=== PATIENT | male | born 1965 | race Caucasian/White ===

== ENCOUNTER 2022-06-21 23:34 | Emergency (ER) | payer MEDICAID, OTHER ==
[~2022-06-21] VITALS: Ht 170.2 cm; Wt 106.4 kg
[2022-06-22] MEDS ORDERED: SODIUM CHLORIDE 0.9% 1,000 ML IV ONE ×2
[2022-06-22] MEDS ORDERED: ONDANSETRON HCL 4 MG/2 ML VIAL IV ONE
[2022-06-22] MEDS ORDERED: MORPHINE SULFATE 4 MG/ML SYR/VIAL IV ONE
[2022-06-22 00:40] LABS: Basophils # (auto) 0.1 10 ^3/uL (0-0.2); Basophils % (auto) 1.1 % (0.0-2.0); Eosinophils # (auto) 0.2 10 ^3/uL (0-0.8); Eosinophils % (auto) 2.2 % (0.0-7.0); Hematocrit 36.7 % (41.0-53.0); Lymphocytes # (auto) 2.6 10 ^3/uL (0.4-5.4); Lymphocytes % (auto) 24.3 % (10.0-50.0); Mean Corpuscular Hemoglobin 27.8 pg (28.0-32.0); Mean Corpuscular Hgb Conc. 32.7 g/dL (32.0-36.0); Mean Corpuscular Volume 84.9 fL (80.0-100.0); Monocytes # (auto) 0.9 10 ^3/uL (0-1.3); Monocytes % (auto) 8.1 % (0.0-12.0); Neutrophils # (auto) 6.8 10 ^3/uL (1.6-8.6); Neutrophils % (auto) 64.3 % (37.0-80.0); Red Blood Cells 4.32 10^6/uL (4.5-5.90); Red Cell Distribution Width 16.1 % (11.8-14.3); White Blood Cell 10.5 10^3/uL (4.4-10.8)
[2022-06-22 00:54] LABS: INR 1.13 (0.9-1.15); Partial Thromboplastin Time 24.2 sec (24.6-33.4)
[2022-06-22 01:00] LABS: Lactic Acid w/Reflex 2.3 mmol/L (0.4-2.0)
[2022-06-22 01:02] LABS: Albumin 2.9 g/dL (3.4-5.0); BUN/Creatinine Ratio 18.1; Calcium 8.4 mg/dL (8.5-10.1); Potassium 3.5 mmol/L (3.5-5.1)
[2022-06-22 01:04] LABS: Bilirubin, Total 0.8 mg/dL (0.2-1.0); Total Protein 6.5 g/dL (6.4-8.2)
[2022-06-22] MEDS ORDERED: LABETALOL HCL 5 MG/ML 4ML SYRINGE IV ONE (05:30)
[2022-06-22 06:59] VITALS: BP 119/85
== END 2022-06-22 07:09 | disposition short-term general hospital (02) ==
LOC: ER 23:34
DX: K40.90 Unilateral inguinal hernia, without obstruction or gangrene, not specified as recurrent (principal)
CPT/HCPCS: 36415; 71045; 74176; 80053; 83605; 84484; 85025; 85610; 85730; 87040; 87077; 87186; 93005; 96361; 96374; 96375; 99285; J2270; J2405; J3490; J7030

== ENCOUNTER 2022-12-13 23:14 | Inpatient (IN) | payer MEDICAID ==
[~2022-12-13] VITALS: Ht 162.6 cm; Wt 78.6 kg
[2022-12-13] MEDS ORDERED: FUROSEMIDE 20 MG/2 ML VIAL IV ONE (23:30)
[2022-12-13] MEDS ORDERED: methylPREDNISolone SOD SUCC 125 MG/2 ML VL IV ONE (23:30)
[2022-12-14 00:02] LABS: Basophils # (auto) 0.3 10 ^3/uL (0-0.2); Eosinophils # (auto) 0.1 10 ^3/uL (0-0.8); Eosinophils % (auto) 0.7 % (0.0-7.0); Hematocrit 40.3 % (41.0-53.0); Hemoglobin 13.2 g/dL (13.5-17.5); Lymphocytes # (auto) 1.5 10 ^3/uL (0.4-5.4); Lymphocytes % (auto) 15.4 % (10.0-50.0); Mean Corpuscular Hemoglobin 27.5 pg (28.0-32.0); Mean Corpuscular Hgb Conc. 32.8 g/dL (32.0-36.0); Mean Corpuscular Volume 83.9 fL (80.0-100.0); Monocytes # (auto) 0.7 10 ^3/uL (0-1.3); Monocytes % (auto) 7.2 % (0.0-12.0); Neutrophils # (auto) 7.2 10 ^3/uL (1.6-8.6); Neutrophils % (auto) 73.7 % (37.0-80.0); Nucleated Red Blood Cells % 0.3 %; Red Cell Distribution Width 17.4 % (11.8-14.3); White Blood Cell 9.8 10^3/uL (4.4-10.8)
[2022-12-14 00:07] LABS: Albumin 3.2 g/dL (3.4-5.0); BUN/Creatinine Ratio 26.7; Calcium 8.6 mg/dL (8.5-10.1)
[2022-12-14 00:09] LABS: Bilirubin, Total 0.6 mg/dL (0.2-1.0); Total Protein 7.3 g/dL (6.4-8.2)
[2022-12-14] MEDS ORDERED: cefTRIAXone 1GM/50ML D5W 50 ML IV ONE (01:30)
[2022-12-14] MEDS ORDERED: AZITHROMYCIN 250 MG TAB PO ONE (01:30)
[2022-12-14] MEDS ORDERED: HYDROcodone-ACET 5/325MG TAB PO ONE ×2 (03:15→22:45)
[2022-12-14] MEDS ORDERED: NITROGLYCERIN 0.4 MG SL TAB SL PRN (05:00)
[2022-12-14] MEDS ORDERED: MORPHINE SULFATE INJ 2 MG/ml SYRG IV PRN (05:00)
[2022-12-14] MEDS ORDERED: ACETAMINOPHEN 325 MG TAB PO PRN (05:00)
[2022-12-14] MEDS ORDERED: ONDANSETRON HCL 4 MG/2 ML VIAL IV PRN (05:00)
[2022-12-14] MEDS ORDERED: ALBUTEROL SULF 2.5 MG/0.5ML(0.5%) NEB SOLN NEB PRN (05:00)
[2022-12-14] MEDS: FUROSEMIDE 20 MG/2 ML VIAL IV SCH ×2 (06:26→18:00)
[2022-12-14 10:20] LABS: INR 1.44 (0.9-1.15)
[2022-12-14] MEDS: AZITHROMYCIN 500MG/ 250ML 250 ML IV SCH (12:12)
[2022-12-14] MEDS: CARVEDILOL 3.125 MG TAB PO SCH ×2 (12:13→22:29)
[2022-12-14] MEDS: ASPirin 81 mg TAB PO SCH (12:13)
[2022-12-14] MEDS: PANTOPRAZOLE 40 MG TAB PO SCH (12:14)
[2022-12-14] MEDS: ENOXAPARIN SOD 40 MG/0.4 ML SYRINGE SC SCH (12:14)
[2022-12-14] MEDS: LISINOPRIL 10 MG TAB PO SCH (12:14)
[2022-12-14 12:35] LABS: Urine WBC None Seen /hpf (0 - 3)
[2022-12-14 13:01] LABS: Urine Bacteria FEW /hpf (None Seen); Urine Blood Negative /uL (Negative)
[2022-12-14 13:14] LABS: Alcohol, Urine < 3.0 mg/dL (0-10); Amphetamine Screen, Urine POSITIVE (NEGATIVE); Barbiturate Scree,Urine NEGATIVE (NEGATIVE); Benzodiazephine Screen, Urine NEGATIVE (NEGATIVE); Cannabinoid Screen, Urine NEGATIVE (NEGATIVE); Cocaine Screen, Urine NEGATIVE (NEGATIVE); Opiate Scree,Urine NEGATIVE (NEGATIVE); Phencyclidine Screen, Urine NEGATIVE (NEGATIVE)
[2022-12-14] MEDS ORDERED: ALBUTEROL MEDNEB 2.5 mg/3ml NEB ONE (18:11)
[2022-12-14] MEDS: IPRATROPIUM BROM 0.5 MG/2.5ML INH SOL NEB SCH (19:02)
[2022-12-14] MEDS: BUDESONIDE (INHALATION) 0.5 MG/2 ML NEB NEB SCH (19:02)
[2022-12-14] MEDS: ALBUTEROL SULF 2.5 MG/0.5ML(0.5%) NEB SOLN NEB SCH (19:03)
[2022-12-14] MEDS: LORazepam 0.5 MG TAB PO SCH (22:29)
[2022-12-14] MEDS: methylPREDNISolone SOD SUCC 40 MG/ML VL IV SCH (22:29)
[2022-12-14] MEDS: ATORVASTATIN 20 MG TAB PO SCH (22:30)
[2022-12-14 23:53] VITALS: BP 98/66
[2022-12-15] VITALS: BP 98/66
[2022-12-15 05:00] VITALS: BP 87/52
[2022-12-15 05:58] LABS: Basophils # (auto) 0 10 ^3/uL (0-0.2); Basophils % (auto) 0.1 % (0.0-2.0); Eosinophils # (auto) 0 10 ^3/uL (0-0.8); Hematocrit 36.3 % (41.0-53.0); Lymphocytes # (auto) 0.7 10 ^3/uL (0.4-5.4); Lymphocytes % (auto) 5.9 % (10.0-50.0); Mean Corpuscular Hemoglobin 27.6 pg (28.0-32.0); Mean Corpuscular Hgb Conc. 33.1 g/dL (32.0-36.0); Mean Corpuscular Volume 83.2 fL (80.0-100.0); Monocytes # (auto) 0.4 10 ^3/uL (0-1.3); Monocytes % (auto) 3.2 % (0.0-12.0); Neutrophils # (auto) 10.9 10 ^3/uL (1.6-8.6); Neutrophils % (auto) 90.8 % (37.0-80.0); Nucleated Red Blood Cells % 0.2 %; Red Blood Cells 4.37 10^6/uL (4.5-5.90); Red Cell Distribution Width 17.3 % (11.8-14.3); White Blood Cell 11.9 10^3/uL (4.4-10.8)
[2022-12-15] MEDS: FUROSEMIDE 20 MG/2 ML VIAL IV SCH ×2 (06:00→18:00)
[2022-12-15] MEDS ORDERED: ALBUTEROL MEDNEB 2.5 mg/3ml NEB ONE ×3 (06:04→19:45)
[2022-12-15] MEDS: ALBUTEROL SULF 2.5 MG/0.5ML(0.5%) NEB SOLN NEB SCH ×3 (06:27→19:45)
[2022-12-15] MEDS: BUDESONIDE (INHALATION) 0.5 MG/2 ML NEB NEB SCH ×2 (06:27→19:46)
[2022-12-15] MEDS: IPRATROPIUM BROM 0.5 MG/2.5ML INH SOL NEB SCH ×3 (06:27→19:45)
[2022-12-15] MEDS: methylPREDNISolone SOD SUCC 40 MG/ML VL IV SCH ×3 (06:32→21:45)
[2022-12-15 07:57] LABS: Albumin 3.1 g/dL (3.4-5.0); Calcium 8.5 mg/dL (8.5-10.1); Potassium 4.5 mmol/L (3.5-5.1)
[2022-12-15 08:01] LABS: BUN/Creatinine Ratio 32.7; Bilirubin, Total 0.4 mg/dL (0.2-1.0); Total Protein 7.1 g/dL (6.4-8.2)
[2022-12-15 09:00] VITALS: BP 124/85
[2022-12-15] MEDS: AZITHROMYCIN 500MG/ 250ML 250 ML IV SCH (09:35)
[2022-12-15] MEDS: ASPirin 81 mg TAB PO SCH (09:35)
[2022-12-15] MEDS: PANTOPRAZOLE 40 MG TAB PO SCH (09:39)
[2022-12-15] MEDS: CARVEDILOL 3.125 MG TAB PO SCH ×2 (09:43→21:46)
[2022-12-15] MEDS: LORazepam 0.5 MG TAB PO SCH ×2 (09:45→21:45)
[2022-12-15] MEDS: LISINOPRIL 10 MG TAB PO SCH (09:46)
[2022-12-15] MEDS: ENOXAPARIN SOD 40 MG/0.4 ML SYRINGE SC SCH (09:48)
[2022-12-15] MEDS: NICOTINE 14 MG/24HR TOPICAL PATCH TD SCH (09:59)
[2022-12-15] MEDS ORDERED: fentaNYL CITRATE 100 MCG/2 ML VL ONE (12:49)
[2022-12-15] MEDS ORDERED: VERAPAMIL 2.5MG/ML INJ 2ML VIAL IV ONE (12:49)
[2022-12-15] MEDS ORDERED: IODIXANOL 320MG/ML 100ML BTL IV ONE (12:49)
[2022-12-15] MEDS ORDERED: ANGIOMAX 250 MG VIAL IV ONE (12:49)
[2022-12-15] MEDS ORDERED: HEPARIN SODIUM (PORCINE) 5000 UNITS/ML 1ML VIAL ONE (12:49)
[2022-12-15] MEDS ORDERED: SODIUM CHL 0.9% 0 ML ONE (12:49)
[2022-12-15] MEDS ORDERED: LIDOCAINE 2%HCL (LOCAL ANESTH.) INJ 10ml MDV ONE (12:50)
[2022-12-15 13:00] VITALS: BP 112/80
[2022-12-15] MEDS ORDERED: MIDAZOLAM HCL 2MG/2ML 2ml VIAL (1mg/ml) ONE (13:00)
[2022-12-15] MEDS ORDERED: FUROSEMIDE 20 MG/2 ML VIAL ONE (13:12)
[2022-12-15] MEDS ORDERED: EPINEPHrine HCL 1 MG/10 ML SYRG IV ONE (16:08)
[2022-12-15 17:00] VITALS: BP 102/68
[2022-12-15] MEDS: ATORVASTATIN 20 MG TAB PO SCH (21:46)
[2022-12-16 05:00] VITALS: BP 108/67
[2022-12-16] MEDS: FUROSEMIDE 20 MG/2 ML VIAL IV SCH ×2 (05:51→12:49)
[2022-12-16] MEDS: methylPREDNISolone SOD SUCC 40 MG/ML VL IV SCH ×2 (05:53→12:49)
[2022-12-16] MEDS ORDERED: ALBUTEROL MEDNEB 2.5 mg/3ml NEB ONE ×2 (06:06→14:00)
[2022-12-16] MEDS: ALBUTEROL SULF 2.5 MG/0.5ML(0.5%) NEB SOLN NEB SCH ×2 (06:26→15:57)
[2022-12-16] MEDS: IPRATROPIUM BROM 0.5 MG/2.5ML INH SOL NEB SCH ×2 (06:26→15:57)
[2022-12-16] MEDS ORDERED: CAR3125T PO ×3 (08:38→08:40)
[2022-12-16] MEDS ORDERED: IPRA0.00 IN ×3 (08:38→08:40)
[2022-12-16] MEDS ORDERED: FAMO-161 PO ×3 (08:38→08:40)
[2022-12-16] MEDS ORDERED: FURO1TAB31 PO ×3 (08:38→08:40)
[2022-12-16] MEDS ORDERED: SACU1TAB PO ×3 (08:38→08:40)
[2022-12-16] MEDS ORDERED: ATOR20TA50 PO ×3 (08:38→08:40)
[2022-12-16] MEDS ORDERED: ASPI-325 PO ×2 (08:38→08:39)
[2022-12-16 08:50] VITALS: BP 125/99
[2022-12-16] MEDS: AZITHROMYCIN 500MG/ 250ML 250 ML IV SCH (10:46)
[2022-12-16] MEDS: ASPirin 81 mg TAB PO SCH (10:46)
[2022-12-16] MEDS: LORazepam 0.5 MG TAB PO SCH (10:47)
[2022-12-16] MEDS: PANTOPRAZOLE 40 MG TAB PO SCH (10:48)
[2022-12-16] MEDS: NICOTINE 14 MG/24HR TOPICAL PATCH TD SCH (10:50)
[2022-12-16] MEDS: CARVEDILOL 3.125 MG TAB PO SCH (10:55)
[2022-12-16] MEDS: LISINOPRIL 10 MG TAB PO SCH (10:56)
[2022-12-16] MEDS: ENOXAPARIN SOD 40 MG/0.4 ML SYRINGE SC SCH (12:50)
[2022-12-16 14:43] VITALS: BP 125/99
[2022-12-16] MEDS: BUDESONIDE (INHALATION) 0.5 MG/2 ML NEB NEB SCH (15:57)
== END 2022-12-16 16:49 | disposition home health service (06) | DRG 190 ==
LOC: ER 23:14 → EDBD 23:14 → TELE 12-14 04:55 → TELE-EAST 12-14 23:42
PROVIDERS: ADMIT Nurse Practitioner; ATTEND Hospitalist
PROC: 4A023N7 Measurement of Cardiac Sampling and Pressure, Left Heart, Percutaneous Approach (ICD-10-PCS; principal; 2022-12-15)
PROC: B211YZZ Fluoroscopy of Multiple Coronary Arteries using Other Contrast (ICD-10-PCS; 2022-12-15)
DX: I21.4 Non-ST elevation (NSTEMI) myocardial infarction (principal); I42.8 Other cardiomyopathies; N17.9 Acute kidney failure, unspecified; I11.0 Hypertensive heart disease with heart failure; I50.9 Heart failure, unspecified; J44.1 Chronic obstructive pulmonary disease with (acute) exacerbation; R09.02 Hypoxemia; I25.10 Atherosclerotic heart disease of native coronary artery without angina pectoris; F17.210 Nicotine dependence, cigarettes, uncomplicated; Z20.822 Contact with and (suspected) exposure to COVID-19; Z59.00 Homelessness unspecified; Z98.61 Coronary angioplasty status; Z86.73 Personal history of transient ischemic attack (TIA), and cerebral infarction without residual deficits
CPT/HCPCS: 36415; 80053; 80307; 81001; 83880; 84484; 85025; 85610; 87426; 93005; 93306; 94640; 96365; 96375; 99291; G0378; J0696; J2001; J2250; J2405; Q9967

== ENCOUNTER 2022-12-29 00:33 | Emergency (ER) | payer MEDICAID ==
[~2022-12-29 00:33] MED LIST: ASPI-325 PO; ATOR20TA50 PO; CAR3125T PO; FAMO-161 PO; FURO1TAB31 PO; IPRA0.00 IN; SACU1TAB PO
[2022-12-29 00:56] LABS: Basophils # (auto) 0.1 10 ^3/uL (0-0.2); Eosinophils # (auto) 0.1 10 ^3/uL (0-0.8); Mean Corpuscular Volume 84.7 fL (80.0-100.0); Monocytes # (auto) 0.8 10 ^3/uL (0-1.3)
[2022-12-29 00:58] LABS: Eosinophils % (auto) 1.1 % (0.0-7.0); Hematocrit 43.7 % (41.0-53.0); Hemoglobin 13.8 g/dL (13.5-17.5); Lymphocytes # (auto) 2.6 10 ^3/uL (0.4-5.4); Lymphocytes % (auto) 20.8 % (10.0-50.0); Mean Corpuscular Hemoglobin 26.8 pg (28.0-32.0); Mean Corpuscular Hgb Conc. 31.6 g/dL (32.0-36.0); Monocytes % (auto) 6.1 % (0.0-12.0); Nucleated Red Blood Cells % 0.1 %; Red Blood Cells 5.16 10^6/uL (4.5-5.90); Red Cell Distribution Width 18.9 % (11.8-14.3); White Blood Cell 12.6 10^3/uL (4.4-10.8)
[2022-12-29 01:19] LABS: INR 1.21 (0.9-1.15); Partial Thromboplastin Time 31.4 sec (24.6-33.4)
[2022-12-29 01:24] LABS: Albumin 3.2 g/dL (3.4-5.0); BUN/Creatinine Ratio 27.9; Calcium 8.5 mg/dL (8.5-10.1); Magnesium 1.8 mg/dL (1.6-2.6); Potassium 3.9 mmol/L (3.5-5.1)
[2022-12-29 01:40] LABS: Bilirubin, Total 0.4 mg/dL (0.2-1.0)
[2022-12-29 01:41] LABS: Total Protein 7.4 g/dL (6.4-8.2)
== END 2022-12-29 00:56 | disposition left against medical advice (07) ==
LOC: ER 00:33
DX: R07.89 Other chest pain (principal); R06.02 Shortness of breath; Z53.21 Procedure and treatment not carried out due to patient leaving prior to being seen by health care provider; Z79.899 Other long term (current) drug therapy
CPT/HCPCS: 36415; 80053; 83735; 83880; 84484; 85025; 85610; 85730; 93005

== ENCOUNTER 2023-01-26 18:48 | Inpatient (IN) | payer MEDICAID ==
[~2023-01-26] VITALS: Ht 167.6 cm; Wt 73.9 kg
[2023-01-26 19:40] LABS: Basophils # (auto) 0.1 10 ^3/uL (0-0.2); Eosinophils # (auto) 0.1 10 ^3/uL (0-0.8); Eosinophils % (auto) 0.8 % (0.0-7.0); Hemoglobin 14.3 g/dL (13.5-17.5); Monocytes # (auto) 1.4 10 ^3/uL (0-1.3); White Blood Cell 9.1 10^3/uL (4.4-10.8)
[2023-01-26 19:42] LABS: Basophils % (auto) 0.7 % (0.0-2.0); Hematocrit 45.1 % (41.0-53.0); Lymphocytes # (auto) 1.7 10 ^3/uL (0.4-5.4); Lymphocytes % (auto) 18.2 % (10.0-50.0); Mean Corpuscular Hemoglobin 26.4 pg (28.0-32.0); Mean Corpuscular Hgb Conc. 31.7 g/dL (32.0-36.0); Mean Corpuscular Volume 83.1 fL (80.0-100.0); Neutrophils # (auto) 5.9 10 ^3/uL (1.6-8.6); Neutrophils % (auto) 65.3 % (37.0-80.0); Red Blood Cells 5.43 10^6/uL (4.5-5.90)
[2023-01-26 20:19] LABS: INR 1.06 (0.9-1.15); Partial Thromboplastin Time 32.1 sec (24.6-33.4)
[2023-01-26 20:22] LABS: Albumin 3.2 g/dL (3.4-5.0); BUN/Creatinine Ratio 15.1 (10.0-20.0); Calcium 8.6 mg/dL (8.5-10.1); Magnesium 1.9 mg/dL (1.6-2.6); Potassium 3.9 mmol/L (3.5-5.1)
[2023-01-26 20:24] LABS: Bilirubin, Total 0.5 mg/dL (0.2-1.0); Total Protein 7.3 g/dL (6.4-8.2)
[2023-01-26] MEDS ORDERED: OXYCODONE W/ ACETAMINOPHEN 5/325MG TABLET PO ONE (23:30)
[2023-01-27] MEDS ORDERED: AZITHROMYCIN 250 MG TAB PO ONE (00:30)
[2023-01-27] MEDS ORDERED: cefTRIAXone 1GM/50ML D5W 50 ML IV ONE (00:30)
[2023-01-27] MEDS ORDERED: levoFLOXacin 500MG 100 ML IV ONE (00:45)
[2023-01-27] MEDS ORDERED: ONDANSETRON HCL 4 MG/2 ML VIAL IV PRN (02:45)
[2023-01-27] MEDS ORDERED: HYDROcodone-ACET 5/325MG TAB PO PRN (02:45)
[2023-01-27] MEDS ORDERED: NITROGLYCERIN 0.4 MG SL TAB SL PRN (02:45)
[2023-01-27] MEDS ORDERED: TEMAZEPAM 15 MG CAP PO PRN (02:45)
[2023-01-27] MEDS ORDERED: ACETAMINOPHEN 325 MG TAB PO PRN (02:45)
[2023-01-27] MEDS ORDERED: MORPHINE SULFATE INJ 2 MG/ml SYRG IV PRN (02:45)
[2023-01-27] MEDS ORDERED: ALBUTEROL SULF 2.5 MG/0.5ML(0.5%) NEB SOLN NEB PRN (07:00)
[2023-01-27] MEDS ORDERED: LORazepam 2MG/ML-1ML VIAL IV PRN (09:15)
[2023-01-27 09:16] VITALS: BP 121/72
[2023-01-27] MEDS ORDERED: ASPirin 81 mg TAB PO SCH (10:00)
[2023-01-27] MEDS ORDERED: ENOXAPARIN SOD 40 MG/0.4 ML SYRINGE SC SCH (10:00)
[2023-01-27] MEDS: predniSONE 20 MG TAB PO SCH (11:06)
[2023-01-27] MEDS: FUROSEMIDE 40 MG TAB PO SCH (11:06)
[2023-01-27] MEDS: PANTOPRAZOLE 40 MG TAB PO SCH (11:07)
[2023-01-27] MEDS: CARVEDILOL 3.125 MG TAB PO SCH ×2 (11:07→22:55)
[2023-01-27] MEDS: ENOXAPARIN SOD 60 MG/0.6 ML SYRINGE SC SCH ×2 (11:08→23:14)
[2023-01-27] MEDS: SACUBITRIL-VALSARTAN 24mg/26mg TAB PO SCH ×2 (11:13→22:55)
[2023-01-27 11:16] LABS: Cholesterol 85 mg/dL (< 200); HDL Cholesterol 32 mg/dL (40-59); LDL Cholesterol 47 mg/dL (< 100); Triglycerides 115 mg/dL (< 150)
[2023-01-27 13:30] LABS: Urine Bacteria NONE SEEN /hpf (None Seen); Urine Blood Negative /uL (Negative); Urine Specific Gravity 1.005 (1.001-1.035); Urine WBC <1 /hpf (0 - 3)
[2023-01-27 13:48] LABS: Alcohol, Urine < 3.0 mg/dL (0-10); Amphetamine Screen, Urine POSITIVE (NEGATIVE); Barbiturate Scree,Urine NEGATIVE (NEGATIVE); Benzodiazephine Screen, Urine NEGATIVE (NEGATIVE); Cannabinoid Screen, Urine NEGATIVE (NEGATIVE)
[2023-01-27 13:56] LABS: Cocaine Screen, Urine NEGATIVE (NEGATIVE); Opiate Scree,Urine NEGATIVE (NEGATIVE); Phencyclidine Screen, Urine NEGATIVE (NEGATIVE)
[2023-01-27] MEDS: cefTRIAXone 1GM/50ML D5W 50 ML IV SCH (19:43)
[2023-01-27] MEDS ORDERED: levoFLOXacin 500MG 100 ML IV SCH (22:00)
[2023-01-27] MEDS: ATORVASTATIN 20 MG TAB PO SCH (23:13)
[2023-01-27] MEDS: DOXYCYCLINE 100 MG TAB/CAP PO SCH (23:14)
[2023-01-27 23:21] VITALS: BP 93/60
[2023-01-28] VITALS (7 sets, daily range): BP systolic 97–122; BP diastolic 53–68
[2023-01-28] MEDS ORDERED: APIX5TAB PO (00:02)
[2023-01-28 06:26] LABS: Basophils # (auto) 0 10 ^3/uL (0-0.2); Basophils % (auto) 0.3 % (0.0-2.0); Eosinophils # (auto) 0 10 ^3/uL (0-0.8); Hemoglobin 14.5 g/dL (13.5-17.5); Neutrophils # (auto) 9.6 10 ^3/uL (1.6-8.6)
[2023-01-28 06:29] LABS: Hematocrit 44.4 % (41.0-53.0); Lymphocytes # (auto) 2.1 10 ^3/uL (0.4-5.4); Lymphocytes % (auto) 16.2 % (10.0-50.0); Mean Corpuscular Hgb Conc. 32.7 g/dL (32.0-36.0); Mean Corpuscular Volume 82.6 fL (80.0-100.0); Monocytes % (auto) 8.2 % (0.0-12.0); Neutrophils % (auto) 75.3 % (37.0-80.0); Nucleated Red Blood Cells % 0.1 %; Red Blood Cells 5.37 10^6/uL (4.5-5.90); Red Cell Distribution Width 18.2 % (11.8-14.3); White Blood Cell 12.8 10^3/uL (4.4-10.8)
[2023-01-28 06:33] LABS: Potassium 4.1 mmol/L (3.5-5.1)
[2023-01-28 06:45] LABS: BUN/Creatinine Ratio 21.3 (10.0-20.0)
[2023-01-28 06:46] LABS: Albumin 2.8 g/dL (3.4-5.0); Bilirubin, Total 0.5 mg/dL (0.2-1.0); Calcium 8.9 mg/dL (8.5-10.1)
[2023-01-28] MEDS: PANTOPRAZOLE 40 MG TAB PO SCH (09:30)
[2023-01-28] MEDS: DOXYCYCLINE 100 MG TAB/CAP PO SCH ×2 (09:30→22:10)
[2023-01-28] MEDS: ENOXAPARIN SOD 60 MG/0.6 ML SYRINGE SC SCH ×2 (09:30→22:16)
[2023-01-28] MEDS: FUROSEMIDE 40 MG TAB PO SCH (09:30)
[2023-01-28] MEDS: predniSONE 20 MG TAB PO SCH (09:30)
[2023-01-28] MEDS: SACUBITRIL-VALSARTAN 24mg/26mg TAB PO SCH ×2 (09:31→22:10)
[2023-01-28] MEDS: CARVEDILOL 3.125 MG TAB PO SCH ×2 (09:31→22:09)
[2023-01-28] MEDS: cefTRIAXone 1GM/50ML D5W 50 ML IV SCH (20:00)
[2023-01-28] MEDS: ATORVASTATIN 20 MG TAB PO SCH (22:08)
[2023-01-29 05:00] VITALS: BP 123/76
[2023-01-29 09:00] VITALS: BP 88/51
[2023-01-29] MEDS: SACUBITRIL-VALSARTAN 24mg/26mg TAB PO SCH (10:00)
[2023-01-29] MEDS: CARVEDILOL 3.125 MG TAB PO SCH (10:00)
[2023-01-29] MEDS: predniSONE 20 MG TAB PO SCH (10:27)
[2023-01-29] MEDS: PANTOPRAZOLE 40 MG TAB PO SCH (10:28)
[2023-01-29] MEDS: ENOXAPARIN SOD 60 MG/0.6 ML SYRINGE SC SCH (10:28)
[2023-01-29] MEDS: FUROSEMIDE 40 MG TAB PO SCH (10:28)
[2023-01-29] MEDS: DOXYCYCLINE 100 MG TAB/CAP PO SCH (10:28)
[2023-01-29 13:20] VITALS: BP 103/61
[2023-01-29] MEDS ORDERED: DOX100T PO (13:55)
== END 2023-01-29 14:00 | disposition home or self-care (01) | DRG 139 ==
LOC: EDBD 18:48 → ER 18:48 → TELE 01-27 02:44 → TELE-EAST 01-27 21:54
PROVIDERS: ADMIT Nurse Practitioner; ATTEND Internal Medicine
DX: J18.9 Pneumonia, unspecified organism (principal); I11.0 Hypertensive heart disease with heart failure; G81.94 Hemiplegia, unspecified affecting left nondominant side; I50.9 Heart failure, unspecified; I48.91 Unspecified atrial fibrillation; I10 Essential (primary) hypertension; F17.210 Nicotine dependence, cigarettes, uncomplicated; I25.10 Atherosclerotic heart disease of native coronary artery without angina pectoris; Z59.00 Homelessness unspecified; I25.2 Old myocardial infarction; Z79.899 Other long term (current) drug therapy; Z79.82 Long term (current) use of aspirin; Z86.711 Personal history of pulmonary embolism; Z88.1 Allergy status to other antibiotic agents; Z95.5 Presence of coronary angioplasty implant and graft
CPT/HCPCS: 36415; 70551; 71045; 80053; 80061; 80307; 81001; 83735; 83880; 84484; 85025; 85379; 85610; 85652; 85730; 86038; 86141; 93005; 93886; 96365; 96367; 97163; G0378; J0696; J1956; J2405

== ENCOUNTER 2023-04-23 20:33 | Inpatient (IN) | payer MEDICAID ==
[~2023-04-23] VITALS: Ht 165.1 cm; Wt 49.2 kg
[~2023-04-23 20:33] MED LIST changes: +APIX5TAB PO; +DOX100T PO
[2023-04-23 21:34] LABS: Basophils # (auto) 0.1 10 ^3/uL (0-0.2); Basophils % (auto) 0.7 % (0.0-2.0); Eosinophils # (auto) 0.1 10 ^3/uL (0-0.8); Eosinophils % (auto) 0.5 % (0.0-7.0); Hematocrit 29.2 % (41.0-53.0); Hemoglobin 9.5 g/dL (13.5-17.5); Lymphocytes # (auto) 3.6 10 ^3/uL (0.4-5.4); Lymphocytes % (auto) 28.3 % (10.0-50.0); Mean Corpuscular Hemoglobin 29.5 pg (28.0-32.0); Mean Corpuscular Hgb Conc. 32.7 g/dL (32.0-36.0); Mean Corpuscular Volume 90.2 fL (80.0-100.0); Monocytes # (auto) 1.7 10 ^3/uL (0-1.3); Monocytes % (auto) 13.8 % (0.0-12.0); Neutrophils # (auto) 7.2 10 ^3/uL (1.6-8.6); Neutrophils % (auto) 56.7 % (37.0-80.0); Nucleated Red Blood Cells % 0.1 %; Red Blood Cells 3.24 10^6/uL (4.5-5.90); Red Cell Distribution Width 16.8 % (11.8-14.3); White Blood Cell 12.6 10^3/uL (4.4-10.8)
[2023-04-23 21:55] LABS: Albumin 2.2 g/dL (3.4-5.0); Anion Gap 9 (5-15); Blood Alcohol < 3.0 mg/dL (<10); Blood Urea Nitrogen 16 mg/dL (7-18); Calcium 7.5 mg/dL (8.5-10.1); Carbon Dioxide 21 mmol/L (21-32); Chloride 112 mmol/L (98-107); Glucose 93 mg/dL (74-106); Magnesium 1.7 mg/dL (1.6-2.6); Potassium 3.6 mmol/L (3.5-5.1); Sodium 142 mmol/L (136-145)
[2023-04-23 21:58] LABS: Alanine Aminotransferase 42 U/L (16-61); Alkaline Phosphatase 105 U/L (45-117); Aspartate Aminotransferase 30 U/L (15-37); BUN/Creatinine Ratio 17.8 (10.0-20.0); Bilirubin, Total 0.2 mg/dL (0.2-1.0); GFR African American 112 mL/min; GFR Non-African American 92 mL/min
[2023-04-23 22:00] LABS: Lactic Acid w/Reflex 2.2 mmol/L (0.4-2.0)
[2023-04-23 22:10] VITALS: PULSE 18
[2023-04-23 22:24] LABS: INR 1.1 (0.9-1.15); Partial Thromboplastin Time 21.5 SEC (24.5-34.5)
[2023-04-23] MEDS ORDERED: LACTATED RINGER S IV ONE (22:30)
[2023-04-23] MEDS ORDERED: PIPERACILLIN-TAZOB 3.375GM 100 ML IV ONE (22:30)
[2023-04-23] MEDS ORDERED: VANCOMYCIN 1GM/250ML 250 ML IV ONE (22:30)
[2023-04-23] MEDS ORDERED: IOHEXOL 350 MG/ML 100ML IJ ONE (23:18)
[2023-04-24] MEDS ORDERED: HYDROmorphone HCL 2 MG/ML VL/or syr IV ONE
[2023-04-24] MEDS ORDERED: LACTULOSE 10g/15ml SOLN 473ML PR ONE (03:00)
[2023-04-24] MEDS ORDERED: LACTULOSE 20Gm/30ML SOLN PO ONE (03:15)
[2023-04-24] MEDS ORDERED: ENOXAPARIN SOD 60 MG/0.6 ML SYRINGE SC ONE (03:15)
[2023-04-24] MEDS ORDERED: MORPHINE SULFATE INJ 2 MG/ml SYRG IV PRN (03:30)
[2023-04-24] MEDS ORDERED: ONDANSETRON HCL 4 MG/2 ML VIAL IV PRN (03:30)
[2023-04-24] MEDS ORDERED: ALBUMIN 25% 100 ML IV ONE (03:30)
[2023-04-24] MEDS ORDERED: NITROGLYCERIN 0.4 MG SL TAB SL PRN (03:30)
[2023-04-24] MEDS ORDERED: ACETAMINOPHEN 325 MG TAB PO PRN (03:30)
[2023-04-24 05:09] LABS: Basophils # (auto) 0.1 10 ^3/uL (0-0.2); Eosinophils # (auto) 0 10 ^3/uL (0-0.8); Eosinophils % (auto) 0.3 % (0.0-7.0); Hemoglobin 8.2 g/dL (13.5-17.5); Mean Corpuscular Hemoglobin 29.5 pg (28.0-32.0); Red Blood Cells 2.77 10^6/uL (4.5-5.90); White Blood Cell 13.4 10^3/uL (4.4-10.8)
[2023-04-24 05:13] LABS: Basophils % (auto) 1.1 % (0.0-2.0); Hematocrit 25.1 % (41.0-53.0); Lymphocytes # (auto) 2.4 10 ^3/uL (0.4-5.4); Lymphocytes % (auto) 18.3 % (10.0-50.0); Mean Corpuscular Hgb Conc. 32.6 g/dL (32.0-36.0); Mean Corpuscular Volume 90.4 fL (80.0-100.0); Monocytes # (auto) 1.5 10 ^3/uL (0-1.3); Monocytes % (auto) 11.4 % (0.0-12.0); Neutrophils # (auto) 9.2 10 ^3/uL (1.6-8.6); Neutrophils % (auto) 68.9 % (37.0-80.0); Nucleated Red Blood Cells % 0.2 %
[2023-04-24] MEDS ORDERED: VANCOMYCIN PER PHARMACY 0 MG IV SCH (05:15)
[2023-04-24 05:24] LABS: Potassium 3.4 mmol/L (3.5-5.1)
[2023-04-24 05:31] LABS: Albumin 2.2 g/dL (3.4-5.0); BUN/Creatinine Ratio 26.9 (10.0-20.0); Bilirubin, Total 0.2 mg/dL (0.2-1.0); Calcium 7.6 mg/dL (8.5-10.1); Total Protein 5.5 g/dL (6.4-8.2)
[2023-04-24] MEDS: SODIUM CHLOR 0.9% PF (SALINE LOCK) 10ML VIAL/SYR IV SCH ×3 (06:09→21:41)
[2023-04-24 07:35] VITALS: PULSE 114; RESP 14; O2SAT 92
[2023-04-24 08:23] LABS: Urine Bacteria NONE SEEN /hpf (None Seen); Urine Blood Negative /uL (Negative); Urine Specific Gravity 1.045 (1.001-1.035); Urine WBC <1 /hpf (0 - 3)
[2023-04-24 08:40] LABS: Alcohol, Urine < 3.0 mg/dL (0-10); Amphetamine Screen, Urine NEGATIVE (NEGATIVE); Barbiturate Scree,Urine NEGATIVE (NEGATIVE); Benzodiazephine Screen, Urine NEGATIVE (NEGATIVE); Cannabinoid Screen, Urine NEGATIVE (NEGATIVE); Cocaine Screen, Urine NEGATIVE (NEGATIVE); Opiate Scree,Urine NEGATIVE (NEGATIVE); Phencyclidine Screen, Urine NEGATIVE (NEGATIVE)
[2023-04-24] MEDS: cefTRIAXone 1GM/50ML D5W 50 ML IV SCH (09:38)
[2023-04-24] MEDS: LACTULOSE 20Gm/30ML SOLN PO SCH ×3 (09:38→21:25)
[2023-04-24] MEDS: FUROSEMIDE 40 MG/4 ML VIAL IV SCH (10:00)
[2023-04-24] MEDS: CARVEDILOL 3.125 MG TAB PO SCH ×2 (10:00→21:42)
[2023-04-24] MEDS: FAMOTIDINE (10MG/ML) 2ML VL IV SCH (11:41)
[2023-04-24] MEDS: ASPirin 81 mg TAB PO SCH (11:41)
[2023-04-24] MEDS: POTASSIUM CHL 20MEQ/100ML 100 ML IV SCH ×2 (11:43→13:57)
[2023-04-24] MEDS: VANCOMYCIN 1GM/250ML 250 ML IV SCH ×2 (11:45→23:30)
[2023-04-24] MEDS ORDERED: DOBUTamine 1000MCG/ML 250 ML IV SCH (14:30)
[2023-04-24 20:09] VITALS: PULSE 96; RESP 18; O2SAT 98
[2023-04-24] MEDS: APIXABAN 5 MG TAB PO SCH (21:52)
[2023-04-24] MEDS: ATORVASTATIN 20 MG TAB PO SCH (21:52)
[2023-04-24] MEDS: SACUBITRIL-VALSARTAN 24mg/26mg TAB PO SCH (21:55)
[2023-04-25] MEDS: LACTULOSE 20Gm/30ML SOLN PO SCH ×4 (03:18→21:00)
[2023-04-25] MEDS: SODIUM CHLOR 0.9% PF (SALINE LOCK) 10ML VIAL/SYR IV SCH ×3 (05:44→22:34)
[2023-04-25 08:01] VITALS: PULSE 90; RESP 16; O2SAT 94
[2023-04-25] MEDS: cefTRIAXone 1GM/50ML D5W 50 ML IV SCH (09:41)
[2023-04-25] MEDS ORDERED: ENOXAPARIN SOD 40 MG/0.4 ML SYRINGE SC SCH (10:00)
[2023-04-25] MEDS: ASPirin 81 mg TAB PO SCH (10:38)
[2023-04-25] MEDS: APIXABAN 5 MG TAB PO SCH ×2 (10:38→22:37)
[2023-04-25] MEDS: FAMOTIDINE (10MG/ML) 2ML VL IV SCH (10:38)
[2023-04-25] MEDS: CARVEDILOL 3.125 MG TAB PO SCH ×2 (10:43→22:00)
[2023-04-25] MEDS: FUROSEMIDE 40 MG/4 ML VIAL IV SCH ×2 (10:45→12:11)
[2023-04-25] MEDS: SACUBITRIL-VALSARTAN 24mg/26mg TAB PO SCH ×2 (10:45→22:00)
[2023-04-25] MEDS: VANCOMYCIN 1GM/250ML 250 ML IV SCH ×2 (11:59→20:32)
[2023-04-25] MEDS ORDERED: POTASSIUM EFFERVESENT TAB 25 MEQ PO ONE (12:00)
[2023-04-25 13:13] LABS: Basophils # (auto) 0.1 10 ^3/uL (0-0.2); Basophils % (auto) 0.6 % (0.0-2.0); Eosinophils # (auto) 0.1 10 ^3/uL (0-0.8); Eosinophils % (auto) 0.7 % (0.0-7.0); Hematocrit 32.5 % (41.0-53.0); Hemoglobin 10.2 g/dL (13.5-17.5); Lymphocytes # (auto) 2.1 10 ^3/uL (0.4-5.4); Lymphocytes % (auto) 21.3 % (10.0-50.0); Mean Corpuscular Hemoglobin 28.6 pg (28.0-32.0); Mean Corpuscular Hgb Conc. 31.4 g/dL (32.0-36.0); Monocytes # (auto) 0.8 10 ^3/uL (0-1.3); Monocytes % (auto) 7.8 % (0.0-12.0); Neutrophils # (auto) 6.8 10 ^3/uL (1.6-8.6); Neutrophils % (auto) 69.6 % (37.0-80.0); Nucleated Red Blood Cells % 0.1 %; Red Blood Cells 3.58 10^6/uL (4.5-5.90); Red Cell Distribution Width 17.4 % (11.8-14.3); White Blood Cell 9.8 10^3/uL (4.4-10.8)
[2023-04-25 13:38] LABS: Potassium 3.5 mmol/L (3.5-5.1)
[2023-04-25 13:49] LABS: BUN/Creatinine Ratio 12.1 (10.0-20.0); Bilirubin, Total 0.3 mg/dL (0.2-1.0)
[2023-04-25] MEDS: HYDROcodone-ACET 5/325MG TAB PO PRN ×2 (16:48→23:17)
[2023-04-25 19:49] VITALS: PULSE 96; RESP 18; O2SAT 96
[2023-04-25 22:00] VITALS: BP 100/65; PULSE 92; RESP 20; TEMP 98.1; O2SAT 97
[2023-04-25] MEDS: ATORVASTATIN 20 MG TAB PO SCH (22:37)
[2023-04-26] VITALS (10 sets, daily range): BP systolic 91–110; BP diastolic 56–67; PULSE 91–98; RESP 18–22; TEMP 97.2–99.5; O2SAT 95–99
[2023-04-26] MEDS: LACTULOSE 20Gm/30ML SOLN PO SCH ×5 (03:00→22:00)
[2023-04-26] MEDS ORDERED: FURO40TA4 PO (03:01)
[2023-04-26] MEDS ORDERED: CAR3125T PO (03:01)
[2023-04-26] MEDS ORDERED: LISI10TA34 PO (03:01)
[2023-04-26] MEDS ORDERED: SPIR50TA5 PO (03:01)
[2023-04-26] MEDS: VANCOMYCIN 1GM/250ML 250 ML IV SCH ×2 (03:32→12:00)
[2023-04-26] MEDS: SODIUM CHLOR 0.9% PF (SALINE LOCK) 10ML VIAL/SYR IV SCH ×2 (05:17→14:02)
[2023-04-26] MEDS: APIXABAN 5 MG TAB PO SCH ×2 (10:23→23:15)
[2023-04-26] MEDS: ASPirin 81 mg TAB PO SCH (10:23)
[2023-04-26] MEDS: cefTRIAXone 1GM/50ML D5W 50 ML IV SCH (10:23)
[2023-04-26] MEDS: FUROSEMIDE 40 MG/4 ML VIAL IV SCH (10:23)
[2023-04-26] MEDS: SACUBITRIL-VALSARTAN 24mg/26mg TAB PO SCH ×2 (10:23→22:00)
[2023-04-26] MEDS: FAMOTIDINE (10MG/ML) 2ML VL IV SCH (10:23)
[2023-04-26] MEDS: CARVEDILOL 3.125 MG TAB PO SCH ×2 (14:03→22:00)
[2023-04-26] MEDS: HYDROcodone-ACET 5/325MG TAB PO PRN ×2 (14:08→23:16)
[2023-04-26] MEDS ORDERED: LORazepam 2MG/ML-1ML VIAL IV PRN (20:00)
[2023-04-26] MEDS: DOXYCYCLINE 100 MG TAB/CAP PO SCH (23:16)
[2023-04-26] MEDS: DOCUSATE SOD 100 MG CAP PO PRN ×2 (23:21→23:26)
[2023-04-26] MEDS: ATORVASTATIN 20 MG TAB PO SCH (23:25)
[2023-04-27] VITALS (7 sets, daily range): BP systolic 96–114; BP diastolic 56–65; PULSE 78–91; RESP 17–19; TEMP 97.9–98.7; O2SAT 92–100
[2023-04-27] MEDS: SODIUM CHLOR 0.9% PF (SALINE LOCK) 10ML VIAL/SYR IV SCH ×3 (00:35→14:00)
[2023-04-27 05:44] LABS: Basophils # (auto) 0.1 10 ^3/uL (0-0.2); Eosinophils # (auto) 0.1 10 ^3/uL (0-0.8); Eosinophils % (auto) 0.8 % (0.0-7.0); Hematocrit 32.1 % (41.0-53.0); Hemoglobin 10.3 g/dL (13.5-17.5); Lymphocytes # (auto) 3.2 10 ^3/uL (0.4-5.4); Lymphocytes % (auto) 34.6 % (10.0-50.0); Mean Corpuscular Hemoglobin 29.6 pg (28.0-32.0); Mean Corpuscular Hgb Conc. 31.9 g/dL (32.0-36.0); Mean Corpuscular Volume 92.8 fL (80.0-100.0); Monocytes # (auto) 1.1 10 ^3/uL (0-1.3); Monocytes % (auto) 12.4 % (0.0-12.0); Neutrophils # (auto) 4.7 10 ^3/uL (1.6-8.6); Neutrophils % (auto) 51.2 % (37.0-80.0); Nucleated Red Blood Cells % 0.1 %; Red Blood Cells 3.46 10^6/uL (4.5-5.90); Red Cell Distribution Width 17.8 % (11.8-14.3); White Blood Cell 9.2 10^3/uL (4.4-10.8)
[2023-04-27 06:05] LABS: Anion Gap 5 (5-15); Blood Urea Nitrogen 17 mg/dL (7-18); Calcium 7.8 mg/dL (8.5-10.1); Carbon Dioxide 24 mmol/L (21-32); Chloride 107 mmol/L (98-107); Glucose 76 mg/dL (74-106); Potassium 4.1 mmol/L (3.5-5.1); Sodium 136 mmol/L (136-145)
[2023-04-27 06:07] LABS: BUN/Creatinine Ratio 23.6 (10.0-20.0); GFR African American 145 mL/min; GFR Non-African American 120 mL/min
[2023-04-27] MEDS: cefTRIAXone 1GM/50ML D5W 50 ML IV SCH (09:05)
[2023-04-27] MEDS: FUROSEMIDE 40 MG/4 ML VIAL IV SCH (09:06)
[2023-04-27] MEDS: ASPirin 81 mg TAB PO SCH (09:06)
[2023-04-27] MEDS: DOXYCYCLINE 100 MG TAB/CAP PO SCH ×2 (09:06→22:26)
[2023-04-27] MEDS: CARVEDILOL 3.125 MG TAB PO SCH ×2 (09:07→22:26)
[2023-04-27] MEDS: LACTULOSE 20Gm/30ML SOLN PO SCH ×2 (09:11→22:00)
[2023-04-27] MEDS: SACUBITRIL-VALSARTAN 24mg/26mg TAB PO SCH ×2 (10:00→22:00)
[2023-04-27] MEDS: APIXABAN 5 MG TAB PO SCH ×2 (10:05→22:26)
[2023-04-27] MEDS: HYDROcodone-ACET 5/325MG TAB PO PRN (22:25)
[2023-04-27] MEDS: ATORVASTATIN 20 MG TAB PO SCH (22:26)
[2023-04-27] MEDS: DOCUSATE SOD 100 MG CAP PO PRN (22:26)
[2023-04-28] MEDS: SODIUM CHLOR 0.9% PF (SALINE LOCK) 10ML VIAL/SYR IV SCH ×4 (00:19→23:04)
[2023-04-28 07:30] VITALS: PULSE 81; PULSE 90; RESP 18; O2SAT 96
[2023-04-28 08:58] VITALS: BP 100/63; PULSE 82; RESP 19; TEMP 98.8; O2SAT 97
[2023-04-28] MEDS: LACTULOSE 20Gm/30ML SOLN PO SCH (10:00)
[2023-04-28] MEDS: CARVEDILOL 3.125 MG TAB PO SCH (10:00)
[2023-04-28] MEDS: FUROSEMIDE 40 MG/4 ML VIAL IV SCH (10:00)
[2023-04-28] MEDS: SACUBITRIL-VALSARTAN 24mg/26mg TAB PO SCH ×2 (10:00→22:16)
[2023-04-28] MEDS: cefTRIAXone 1GM/50ML D5W 50 ML IV SCH (10:00)
[2023-04-28] MEDS: APIXABAN 5 MG TAB PO SCH ×2 (10:01→22:16)
[2023-04-28] MEDS: DOXYCYCLINE 100 MG TAB/CAP PO SCH ×2 (10:01→22:16)
[2023-04-28] MEDS: ASPirin 81 mg TAB PO SCH (10:01)
[2023-04-28] MEDS: HYDROcodone-ACET 5/325MG TAB PO PRN ×2 (12:07→20:06)
[2023-04-28 13:00] VITALS: BP 109/65; PULSE 79; RESP 19; TEMP 98.4; O2SAT 97
[2023-04-28 17:00] VITALS: BP 94/57; PULSE 90; RESP 18; TEMP 98.4; O2SAT 93
[2023-04-28 20:00] VITALS: PULSE 90; O2SAT 96
[2023-04-28 21:30] VITALS: BP 103/63; PULSE 96; RESP 17; TEMP 98.2; O2SAT 94
[2023-04-28] MEDS: ATORVASTATIN 20 MG TAB PO SCH (22:16)
[2023-04-29] VITALS (7 sets, daily range): BP systolic 83–106; BP diastolic 36–88; PULSE 83–92; RESP 15–20; TEMP 97.1–98.1; O2SAT 94–98
[2023-04-29] MEDS: HYDROcodone-ACET 5/325MG TAB PO PRN ×3 (00:58→20:17)
[2023-04-29 06:03] LABS: Basophils # (auto) 0.1 10 ^3/uL (0-0.2); Basophils % (auto) 0.8 % (0.0-2.0); Eosinophils # (auto) 0.1 10 ^3/uL (0-0.8); Eosinophils % (auto) 0.7 % (0.0-7.0); Hematocrit 31.5 % (41.0-53.0); Hemoglobin 10.1 g/dL (13.5-17.5); Lymphocytes # (auto) 3.4 10 ^3/uL (0.4-5.4); Lymphocytes % (auto) 33.8 % (10.0-50.0); Mean Corpuscular Hemoglobin 29.1 pg (28.0-32.0); Mean Corpuscular Hgb Conc. 32.2 g/dL (32.0-36.0); Mean Corpuscular Volume 90.2 fL (80.0-100.0); Monocytes # (auto) 1.1 10 ^3/uL (0-1.3); Monocytes % (auto) 11.2 % (0.0-12.0); Neutrophils # (auto) 5.3 10 ^3/uL (1.6-8.6); Neutrophils % (auto) 53.5 % (37.0-80.0); Nucleated Red Blood Cells % 0.1 %; Red Blood Cells 3.49 10^6/uL (4.5-5.90); Red Cell Distribution Width 16.5 % (11.8-14.3); White Blood Cell 9.9 10^3/uL (4.4-10.8)
[2023-04-29 06:05] LABS: Potassium 4.1 mmol/L (3.5-5.1)
[2023-04-29 06:11] LABS: Calcium 8.1 mg/dL (8.5-10.1)
[2023-04-29] MEDS: SODIUM CHLOR 0.9% PF (SALINE LOCK) 10ML VIAL/SYR IV SCH ×3 (06:28→21:39)
[2023-04-29] MEDS: APIXABAN 5 MG TAB PO SCH ×2 (10:07→21:29)
[2023-04-29] MEDS: ASPirin 81 mg TAB PO SCH (10:07)
[2023-04-29] MEDS: SACUBITRIL-VALSARTAN 24mg/26mg TAB PO SCH ×2 (10:07→21:29)
[2023-04-29] MEDS: DOXYCYCLINE 100 MG TAB/CAP PO SCH ×2 (10:07→21:29)
[2023-04-29] MEDS: cefTRIAXone 1GM/50ML D5W 50 ML IV SCH (11:28)
[2023-04-29] MEDS: FUROSEMIDE 40 MG/4 ML VIAL IV SCH (11:29)
[2023-04-29] MEDS: ATORVASTATIN 20 MG TAB PO SCH (21:29)
[2023-04-30] VITALS (12 sets, daily range): BP systolic 91–144; BP diastolic 49–77; PULSE 66–89; RESP 16–22; TEMP 97.9–98.7; O2SAT 93–99
[2023-04-30] MEDS: HYDROcodone-ACET 5/325MG TAB PO PRN ×2 (00:58→19:49)
[2023-04-30] MEDS: SODIUM CHLOR 0.9% PF (SALINE LOCK) 10ML VIAL/SYR IV SCH ×3 (06:35→22:25)
[2023-04-30] MEDS: FUROSEMIDE 20 MG TAB PO SCH (10:00)
[2023-04-30] MEDS: APIXABAN 5 MG TAB PO SCH ×2 (11:13→22:25)
[2023-04-30] MEDS: DOXYCYCLINE 100 MG TAB/CAP PO SCH ×2 (11:13→22:25)
[2023-04-30] MEDS: SACUBITRIL-VALSARTAN 24mg/26mg TAB PO SCH ×2 (11:13→22:25)
[2023-04-30] MEDS: cefTRIAXone 1GM/50ML D5W 50 ML IV SCH (11:13)
[2023-04-30] MEDS: ASPirin 81 mg TAB PO SCH (11:13)
[2023-04-30] MEDS: LEVALBUTEROL HCL 1.25 MG/3 ML NEB NEB SCH (19:08)
[2023-04-30] MEDS: ATORVASTATIN 20 MG TAB PO SCH (22:25)
[2023-05-01] VITALS (18 sets, daily range): BP systolic 92–111; BP diastolic 51–70; PULSE 82–102; RESP 16–24; TEMP 97.7–98.5; O2SAT 92–100
[2023-05-01] MEDS: LEVALBUTEROL HCL 1.25 MG/3 ML NEB NEB SCH ×4 (00:05→18:38)
[2023-05-01] MEDS: HYDROcodone-ACET 5/325MG TAB PO PRN ×2 (00:56→19:56)
[2023-05-01 06:41] LABS: BUN/Creatinine Ratio 20.3 (10.0-20.0); Calcium 8.5 mg/dL (8.5-10.1); Potassium 4.5 mmol/L (3.5-5.1)
[2023-05-01] MEDS: SODIUM CHLOR 0.9% PF (SALINE LOCK) 10ML VIAL/SYR IV SCH ×3 (06:54→21:34)
[2023-05-01] MEDS: cefTRIAXone 1GM/50ML D5W 50 ML IV SCH (08:41)
[2023-05-01] MEDS: ASPirin 81 mg TAB PO SCH (09:10)
[2023-05-01] MEDS: SACUBITRIL-VALSARTAN 24mg/26mg TAB PO SCH ×2 (09:10→21:34)
[2023-05-01] MEDS: APIXABAN 5 MG TAB PO SCH ×2 (09:10→21:34)
[2023-05-01] MEDS: DOXYCYCLINE 100 MG TAB/CAP PO SCH (09:10)
[2023-05-01] MEDS: FUROSEMIDE 20 MG TAB PO SCH (09:11)
[2023-05-01] MEDS ORDERED: NALOXONE HCL 1MG/ML 2ML SYRINGE ONE (13:29)
[2023-05-01] MEDS: diazePAM 2 MG TAB PO PRN (15:45)
[2023-05-01] MEDS: ATORVASTATIN 20 MG TAB PO SCH (21:34)
[2023-05-02] VITALS (15 sets, daily range): BP systolic 94–103; BP diastolic 58–67; PULSE 79–95; RESP 16–20; TEMP 97.7–98; O2SAT 93–100
[2023-05-02] MEDS: LEVALBUTEROL HCL 1.25 MG/3 ML NEB NEB SCH ×5 (00:16→23:02)
[2023-05-02] MEDS: HYDROcodone-ACET 5/325MG TAB PO PRN ×2 (00:35→19:51)
[2023-05-02] MEDS: SODIUM CHLOR 0.9% PF (SALINE LOCK) 10ML VIAL/SYR IV SCH ×3 (06:39→22:36)
[2023-05-02] MEDS: APIXABAN 5 MG TAB PO SCH ×2 (10:53→22:36)
[2023-05-02] MEDS: SACUBITRIL-VALSARTAN 24mg/26mg TAB PO SCH ×2 (10:53→22:36)
[2023-05-02] MEDS: ASPirin 81 mg TAB PO SCH (10:53)
[2023-05-02] MEDS: FUROSEMIDE 20 MG TAB PO SCH (10:53)
[2023-05-02] MEDS: diazePAM 2 MG TAB PO PRN (11:04)
[2023-05-02] MEDS: ATORVASTATIN 20 MG TAB PO SCH (22:36)
[2023-05-02] MEDS: METOPROLOL TARTRATE 25 MG TAB PO SCH (22:37)
[2023-05-03] VITALS (15 sets, daily range): BP systolic 90–105; BP diastolic 53–66; PULSE 75–90; RESP 16–19; TEMP 97.5–98.3; O2SAT 90–100
[2023-05-03] MEDS: HYDROcodone-ACET 5/325MG TAB PO PRN ×2 (01:37→19:57)
[2023-05-03 05:54] LABS: BUN/Creatinine Ratio 24.7 (10.0-20.0); Calcium 8.2 mg/dL (8.5-10.1); Potassium 4.3 mmol/L (3.5-5.1)
[2023-05-03] MEDS: LEVALBUTEROL HCL 1.25 MG/3 ML NEB NEB SCH ×3 (06:22→17:41)
[2023-05-03] MEDS: SODIUM CHLOR 0.9% PF (SALINE LOCK) 10ML VIAL/SYR IV SCH ×3 (06:33→21:29)
[2023-05-03] MEDS: diazePAM 2 MG TAB PO PRN ×2 (06:50→21:27)
[2023-05-03] MEDS: EMPAGLIFLOZIN 10 MG TAB PO SCH (06:50)
[2023-05-03] MEDS: METOPROLOL TARTRATE 25 MG TAB PO SCH ×2 (10:00→21:28)
[2023-05-03] MEDS: SACUBITRIL-VALSARTAN 24mg/26mg TAB PO SCH ×2 (10:41→21:27)
[2023-05-03] MEDS: APIXABAN 5 MG TAB PO SCH ×2 (10:43→21:27)
[2023-05-03] MEDS: FUROSEMIDE 20 MG TAB PO SCH (10:44)
[2023-05-03] MEDS: ASPirin 81 mg TAB PO SCH (10:49)
[2023-05-03] MEDS: ATORVASTATIN 20 MG TAB PO SCH (21:28)
[2023-05-04] VITALS (16 sets, daily range): BP systolic 92–108; BP diastolic 58–74; PULSE 75–95; RESP 14–20; TEMP 97.5–98.4; O2SAT 92–100
[2023-05-04] MEDS: HYDROcodone-ACET 5/325MG TAB PO PRN (00:20)
[2023-05-04] MEDS: EMPAGLIFLOZIN 10 MG TAB PO SCH (06:04)
[2023-05-04] MEDS: SODIUM CHLOR 0.9% PF (SALINE LOCK) 10ML VIAL/SYR IV SCH ×3 (06:17→22:00)
[2023-05-04] MEDS: LEVALBUTEROL HCL 1.25 MG/3 ML NEB NEB SCH ×4 (06:24→18:44)
[2023-05-04] MEDS: FUROSEMIDE 20 MG TAB PO SCH (09:23)
[2023-05-04] MEDS: APIXABAN 5 MG TAB PO SCH ×2 (09:23→22:20)
[2023-05-04] MEDS: ASPirin 81 mg TAB PO SCH (09:23)
[2023-05-04] MEDS: SACUBITRIL-VALSARTAN 24mg/26mg TAB PO SCH ×2 (09:24→22:20)
[2023-05-04] MEDS: METOPROLOL TARTRATE 25 MG TAB PO SCH ×2 (09:24→22:00)
[2023-05-04] MEDS: diazePAM 2 MG TAB PO PRN (10:13)
[2023-05-04] MEDS: ATORVASTATIN 20 MG TAB PO SCH (22:20)
[2023-05-04] MEDS: QUEtiapine FUMARATE 25 MG TAB PO SCH (22:51)
[2023-05-05] VITALS (13 sets, daily range): BP systolic 85–103; BP diastolic 48–55; PULSE 56–100; RESP 14–20; TEMP 97.6–98.6; O2SAT 92–100
[2023-05-05] MEDS: LEVALBUTEROL HCL 1.25 MG/3 ML NEB NEB SCH ×5 (00:33→23:54)
[2023-05-05] MEDS: DOCUSATE SOD 100 MG CAP PO PRN (00:52)
[2023-05-05] MEDS: SODIUM CHLOR 0.9% PF (SALINE LOCK) 10ML VIAL/SYR IV SCH ×2 (06:30→13:55)
[2023-05-05] MEDS: EMPAGLIFLOZIN 10 MG TAB PO SCH (06:30)
[2023-05-05] MEDS: ASPirin 81 mg TAB PO SCH (09:48)
[2023-05-05] MEDS: APIXABAN 5 MG TAB PO SCH ×2 (09:48→21:51)
[2023-05-05] MEDS: diazePAM 2 MG TAB PO PRN ×2 (09:48→21:56)
[2023-05-05] MEDS: FUROSEMIDE 20 MG TAB PO SCH (09:48)
[2023-05-05] MEDS: METOPROLOL TARTRATE 25 MG TAB PO SCH ×2 (09:49→21:55)
[2023-05-05] MEDS: SACUBITRIL-VALSARTAN 24mg/26mg TAB PO SCH ×2 (09:49→21:51)
[2023-05-05] MEDS: HYDROcodone-ACET 5/325MG TAB PO PRN (19:55)
[2023-05-05] MEDS: ATORVASTATIN 20 MG TAB PO SCH (21:51)
[2023-05-05] MEDS: QUEtiapine FUMARATE 25 MG TAB PO SCH (21:51)
[2023-05-06] VITALS (13 sets, daily range): BP systolic 88–104; BP diastolic 52–58; PULSE 77–97; RESP 14–19; TEMP 97.9–98.4; O2SAT 91–100
[2023-05-06] MEDS: HYDROcodone-ACET 5/325MG TAB PO PRN (00:24)
[2023-05-06] MEDS: SODIUM CHLOR 0.9% PF (SALINE LOCK) 10ML VIAL/SYR IV SCH ×3 (00:41→14:09)
[2023-05-06] MEDS: EMPAGLIFLOZIN 10 MG TAB PO SCH (06:36)
[2023-05-06] MEDS: LEVALBUTEROL HCL 1.25 MG/3 ML NEB NEB SCH ×4 (08:37→18:37)
[2023-05-06] MEDS: FUROSEMIDE 20 MG TAB PO SCH (10:00)
[2023-05-06] MEDS: METOPROLOL TARTRATE 25 MG TAB PO SCH (10:00)
[2023-05-06] MEDS: SACUBITRIL-VALSARTAN 24mg/26mg TAB PO SCH (10:00)
[2023-05-06] MEDS: ASPirin 81 mg TAB PO SCH (10:12)
[2023-05-06] MEDS: APIXABAN 5 MG TAB PO SCH (10:12)
[2023-05-06] MEDS: diazePAM 2 MG TAB PO PRN (10:21)
== END 2023-05-06 20:16 | DRG 720 ==
LOC: ER 20:33 → EDBD 20:33 → TELE 04-24 03:31 → TELE-EAST 04-25 23:39
PROVIDERS: ADMIT Nurse Practitioner Acute Care; ATTEND Nurse Practitioner Acute Care
DX: A41.9 Sepsis, unspecified organism (principal); J96.01 Acute respiratory failure with hypoxia; I21.4 Non-ST elevation (NSTEMI) myocardial infarction; G92.8 Other toxic encephalopathy; J15.6 Pneumonia due to other Gram-negative bacteria; E43 Unspecified severe protein-calorie malnutrition; I50.43 Acute on chronic combined systolic (congestive) and diastolic (congestive) heart failure; K76.82 Hepatic encephalopathy; G93.89 Other specified disorders of brain; I11.0 Hypertensive heart disease with heart failure; J44.0 Chronic obstructive pulmonary disease with (acute) lower respiratory infection; D64.9 Anemia, unspecified; F41.9 Anxiety disorder, unspecified; R79.89 Other specified abnormal findings of blood chemistry; R55 Syncope and collapse; I25.10 Atherosclerotic heart disease of native coronary artery without angina pectoris; E78.5 Hyperlipidemia, unspecified; E87.6 Hypokalemia; I48.91 Unspecified atrial fibrillation; F12.90 Cannabis use, unspecified, uncomplicated; F15.90 Other stimulant use, unspecified, uncomplicated; F17.210 Nicotine dependence, cigarettes, uncomplicated; Z59.00 Homelessness unspecified; I25.2 Old myocardial infarction; I69.354 Hemiplegia and hemiparesis following cerebral infarction affecting left non-dominant side; Z79.01 Long term (current) use of anticoagulants; Z79.82 Long term (current) use of aspirin; Z79.899 Other long term (current) drug therapy; Z80.8 Family history of malignant neoplasm of other organs or systems; Z82.49 Family history of ischemic heart disease and other diseases of the circulatory system; Z86.711 Personal history of pulmonary embolism; Z86.74 Personal history of sudden cardiac arrest; Z88.1 Allergy status to other antibiotic agents; Z95.5 Presence of coronary angioplasty implant and graft; Z68.1 Body mass index [BMI] 19.9 or less, adult
CPT/HCPCS: 36415; 70450; 70486; 70551; 71045; 71250; 71260; 72125; 74176; 74177; 80048; 80053; 80202; 80307; 80320; 81001; 82010; 82140; 82553; 82565; 82962; 83605; 83735; 83880; 83930; 84484; 85025; 85379; 85610; 85730; 86850; 86900; 86901; 87040; 87081; 93005; 93970; 94640; 95819; 96365; 96375; 97110; 97116; 97163; 97530; 99291; G0378; J0696; J2543; J3480; J3490; P9047

== ENCOUNTER 2024-05-09 16:47 | Emergency (ER) | payer MEDICAID ==
[~2024-05-09] VITALS: Ht 170.2 cm; Wt 77.2 kg
[~2024-05-09 16:47] MED LIST changes: +CARV-214 PO; +FURO40TA4 PO; +LISI10TA34 PO; +SPIR50TA5 PO
[2024-05-09 17:17] VITALS: BP 138/112; PULSE 86; RESP 14; O2SAT 96
== END 2024-05-09 17:32 | disposition left against medical advice (07) ==
LOC: ER 16:47
DX: R10.30 Lower abdominal pain, unspecified (principal); R19.7 Diarrhea, unspecified; Z53.21 Procedure and treatment not carried out due to patient leaving prior to being seen by health care provider